=== PATIENT | male | born 1970 | race Two or more races ===

== ENCOUNTER 2018-03-14 03:12 | Emergency (ER) | payer OTHER ==
[~2018-03-14] VITALS: Ht 182.9 cm; Wt 90.7 kg
[2018-03-14] MEDS ORDERED: ZANTAC 7575 MG (03:35)
[2018-03-14] MEDS ORDERED: TRAMADOL HCL50 MG (03:35)
== END 2018-03-15 00:01 | disposition home or self-care (01) ==
LOC: ER 03:12
DX: R10.84 Generalized abdominal pain (principal)

== ENCOUNTER 2018-05-20 21:45 | Emergency (ER) | payer OTHER ==
[~2018-05-20] VITALS: Ht 167.6 cm; Wt 86.2 kg
[~2018-05-20 21:45] MED LIST: TRAMADOL HCL50 MG; ZANTAC 7575 MG
[2018-05-21] MEDS ORDERED: PEPCID40 MG PO (03:22)
[2018-05-21] MEDS ORDERED: PHENERGAN25 MG PO (03:22)
== END 2018-05-21 03:30 | disposition home or self-care (01) ==
LOC: ER 21:45
DX: K29.70 Gastritis, unspecified, without bleeding (principal)

== ENCOUNTER 2018-05-22 04:01 | Emergency (ER) | payer OTHER ==
[~2018-05-22] VITALS: Ht 167.6 cm; Wt 88.5 kg
[~2018-05-22 04:01] MED LIST changes: +PEPCID40 MG PO; +PHENERGAN25 MG PO
== END 2018-05-22 14:09 | disposition home or self-care (01) ==
LOC: ER 04:01
DX: K29.70 Gastritis, unspecified, without bleeding (principal); R10.13 Epigastric pain